=== PATIENT | male | born 1995 | race Caucasian/White ===

== ENCOUNTER 2022-05-10 13:57 | Outpatient (CLI) | payer OTHER, SELFPAY ==
[2022-05-10 23:01] LABS: PCR FLU A Negative PCR FLU A (Negative); PCR FLU B Negative PCR FLU B (Negative); SARS PCR* Negative SARS-CoV-2 (Negative)
== END 2022-05-10 13:58 | disposition home or self-care (01) ==
LOC: LONREF 13:57
PROVIDERS: PCP Family Medicine; Visit Provider Family Medicine
DX: Z20.822 Contact with and (suspected) exposure to COVID-19 (principal); R05.9 Cough, unspecified
CPT/HCPCS: 87631

== ENCOUNTER 2022-06-19 08:03 | Outpatient (CLI) | payer OTHER, SELFPAY ==
[2022-06-19 13:50] LABS: Cholesterol* 149 mg/dL (90-199)
[2022-06-19 13:51] LABS: HDL Cholesterol* 52 mg/dL (>=40); LDL Cholesterol Calculated 88 mg/dL (<100); Triglycerides* 46 mg/dL (40-149)
== END 2022-06-19 08:04 | disposition home or self-care (01) ==
LOC: LONREF 08:05
PROVIDERS: PCP Family Medicine; Visit Provider Family Medicine
DX: Z13.6 Encounter for screening for cardiovascular disorders (principal)
CPT/HCPCS: 80061

== ENCOUNTER 2023-10-05 08:14 | Outpatient (CLI) | payer OTHER, SELFPAY ==
--- OUTSIDE RECORDS SUMMARY | 2023-10-05 08:17 | XMS_ITS | Clinical Summary ---
Author Name Unknown Organization [facility] Address [place], [place] [address] Care Team Providers Care Production Hardener Name Role Phone Kranthi Myers DO Primary Care Provider [phone] Allergies Active Allergy Reactions Criticality Noted Date Comments Amoxicillin Hives 08/15/2006 Medications No known medications Active Problems Problem Noted Date Diagnosed Date Head injury 10/29/2014 Scalp laceration 10/29/2014 Resolved Problems Problem Noted Date Diagnosed Date Resolved Date Infectious mononucleosis 05/29/201110/2012 Immunizations Name Administration Dates Next Due DTP-HIB 1995,1995,1995 DTaP 12/28/2000,02/10/1997 HIB PRP-D (ProHIBIT) 02/10/1997 Hepatitis B (Peds) 07/22/2001,02/01/2001, 001 Inactivated Polio Vaccine 12/28/2000 MMR 02/01/2001,06/17/1996 Oral Polio Vaccine 02/10/1997,1995, 996,1995 Tdap 10/29/2014,03/04/2008 Varicella Vaccine 03/04/2008,02/01/2001 Family History Medical History Relation Name Comments Good Health Father Good Health Mother Relation Name Status Comments Father Alive Mother Alive Social History Tobacco Use Types Packs/Day Years Used Date Smoking Tobacco: Never Smokeless Tobacco: Current Chew Tobacco Cessation:Ready to Q uit: Yes; Counseling Given: Yes Alcohol Use Standard Drinks/Week Comments Yes 0 (1 standard drink = 0.6 oz pur e alcohol) occasional social use PHQ-2 Answer Date Recorded PHQ-2 Score 0 12/27/2018 Sex and Gender Information Value Date Recorded Sex Assigned at Not on file Gender Identity Not on file Sexual Orientation Not on file Obstetrics History Last Filed Vital Signs Vital Sign Reading Time Taken Comments Blood Pressure 100/58 12/27/2018 8:51 AM CDT Pulse 80 12/27/2018 8:51 AM CDT Temperature 36.2 ??C (97.1 ??F) 12/27/2018 8:51 AM CD T Respiratory Rate 17 12/24/2018 1:30 PM CDT Oxygen Saturation 98% 12/24/2018 1:30 PM CDT Inhaled Oxygen Concentration - - Weight 72.6 kg (160 lb) 12/27/2018 8:51 AM CDT Height 176 cm (5' 9.29) 12/27/2018 8:51 AM CDT Body Mass Index 23.43 12/27/2018 8:51 AM CDT Plan of Treatment Health Maintenance Due Date Last Done Comments HIV for age 15-65 2010 Hepatitis C screening for age 18-79 2013 BMI (ht and wt on same day) for age 18+ 12/28/2019 12/27/2018, 12/24/2018, 08/08/2018, Additional history exists Depression screening for age 12+ 12/28/2019 12/27/2018, 08/25/2016 COVID-19 vaccine series ( season) 2023 Influenza for age 9-49 02/03/2024 Tetanus booster 10/29/2024 10/29/2014, 03/04/2008 Tdap Completed 10/29/2014, 03/04/2008 Pneumococcal series for age 6-64 Aged Out No longer eligible based on patient's age to complete this topic Care Teams Production Hardener Relationship Specialty Start Date End Date Kranthi Myers DO PCP - General 11/06/05
--- NOTE | 2023-10-05 09:30 | CT_ITS ---
Patient: FLAKO Spangler [facility] Facility:?[facility] RIS Patient ID:?[id number] Site Patient ID:?[id number]. Site :?[id number] Study:?CT-ST Neck W/IV-10/05/2023 9:51:28 AM Ordering Physician:GERSON Final Report: INDICATION: SORE THRORT FOR 5 WEEKS, ACUTE PHARYGITIS TECHNIQUE: CT soft tissue of the neck was acquired with 85 cc Isovue 370 IV contrast. COMPARISON: None. FINDINGS: Artifact from dental amalgam limits evaluation of adjacent structures. Streak Skull base: Unremarkable. Pharynx/Larynx/Trachea: Epiglottis is normal. Airway is patent. No evidence of peritonsillar or retropharyngeal fluid collection. Adjacent soft tissues are normal. Salivary glands: Unremarkable. Thyroid gland: Unremarkable. No significant nodules. Lymph nodes: Mildly prominent right greater than left cervical chain lymph nodes which are nonspecific and likely reactive. Vessels: Unremarkable for age. Bones: Unremarkable for age. Misc: No inflammation, mass or fluid collection. Lung apices: Calcified granuloma right upper lobe. IMPRESSION: Mildly prominent right greater than left cervical chain lymph nodes which are nonspecific and likely reactive. Otherwise, unremarkable soft tissue CT of the neck. No evidence of peritonsillar or retropharyngeal fluid collection. Please note that all CT scans at this facility use dose modulation, iterative reconstruction, and/or weight-based dosing when appropriate to reduce radiation dose to as low as reasonably achievable. Dictated by Tano Marcelo MD @ 10/05/2023 10:19:43 AM Signed by:?Tano Marcelo MD @10/05/2023 10:19:43 AM (Electronic Signature)
== END 2023-10-05 08:15 | disposition home or self-care (01) ==
PROVIDERS: PCP Family Medicine; Visit Provider Family Medicine
DX: J02.9 Acute pharyngitis, unspecified (principal)
CPT/HCPCS: 70491; 80048; 86140; Q9967

== ENCOUNTER 2024-05-13 08:45 | Outpatient (CLI) | payer MEDICAID, SELFPAY ==
--- OUTSIDE RECORDS SUMMARY | 2024-05-13 08:46 | XMS_ITS | Clinical Summary ---
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 Not on file Not on file Not on file Obstetrics History Last Filed Vital Signs Vital Sign Reading Time Taken Comments Blood Pressure 100/58 12/27/2018 8:51 AM CDT Pulse 80 12/27/2018 8:51 AM CDT Temperature 36.2 C (97.1 F) 12/27/2018 8:51 AM CDT Respiratory Rate 17 12/24/2018 1:30 PM CDT [...] 12/27/2018, 08/25/2016 COVID-19 vaccine series ( season) 2024 Influenza for age 9-49 02/03/2024 Tetanus booster 10/29/2024 10/29/2014, 03/04/2008 Tdap Completed 10/29/2014, 03/04/2008 Pneumococcal series for age 6-64 Aged Out No longer eligible based on patient's age to complete this topic Insurance [facility] ADVANTAGE [employer] [place] [employer] [place] [employer] Care Teams Dicer Operator Relationship Specialty Start Date End Date Pcp, No . PCP - General 10/16/23
--- NOTE | 2024-05-13 09:29 | W.ANESCHARGE ---
Anesthesia Charges Start Date/Time Anesthesia Start Date: 05/13/24 Anesthesia Start Time: 09:07 Stop Date/Time Anesthesia Stop Date: 05/13/24 Anesthesia Stop Time: 09:25
--- NOTE | 2024-05-13 09:36 | W.ANESCHARGE ---
Anesthesia Charges Start Date/Time Anesthesia Start Date: 05/13/24 Anesthesia Start Time: 09:07 Stop Date/Time Anesthesia Stop Date: 05/13/24 Anesthesia Stop Time: 09:25
== END 2024-05-13 08:46 | disposition home or self-care (01) ==
LOC: OP CLINIC 08:45
PROVIDERS: PCP Family Medicine; Visit Provider Surgery
DX: R10.13 Epigastric pain (principal); K22.89 Other specified disease of esophagus
CPT/HCPCS: 00731; 43239; 88305; J2704; J3490

== ENCOUNTER 2025-03-31 20:00 | Emergency (ER) | payer MEDICAID, SELFPAY ==
--- OUTSIDE RECORDS SUMMARY | 2025-03-31 20:02 | XMS_ITS | Clinical Summary ---
Author Organization [facility] Address [address] [place] [id number] Care Team Providers Care Soft Mud Molder Name Role Phone Pcp, No Primary Care Provider Unavailabl e Allergies Active Allergy Reactions Criticality Noted Date Comments Amoxicillin Hives 08/15/2006 Medications No known medications Active Problems Problem Noted Date Diagnosed Date Head injury 10/29/2014 Scalp laceration 10/29/2014 Resolved Problems Problem Noted Date Diagnosed Date Resolved Date Infectious mononucleosis 05/29/201110/2012 Immunizations Immunization Administration Dates Next Due DTP-HIB 1995,1995,1995 DTaP [...] on file 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 Gender Identity Not on file Sexual Orientation [...] screening for age 12+ 12/28/2019 12/27/2018, 08/25/2016 HPV series for age 9-45 (1 - 3-dose SCDM series) 2022 Tetanus booster 10/29/2024 10/29/2014, 03/04/2008 Influenza Vaccine (#1) 2025 RSV vaccine for adults or (1 - 1-dose 75+ series) 2070 Hepatitis B series for 19+ Completed 07/22, 02/01/2001, 12/28/2000 Pneumococcal series for age 6-49 Aged Out No longer eligible based on patient's age to complete this topic Insurance [facility] ADVANTAGE [facility] ADVANTAGE [facility] AD[facility] * Guarantor: LAUREN DASH Account Type Relation to Patient Date of Phone Billing Address [employer] [address] [place] [address] Care Teams Soft Mud Molder Relationship Specialty Start Date End Date Pcp, No . PCP - General 10/16/23
[2025-03-31 20:13] VITALS: BP 162/112; PULSE 75; RESP 16; TEMP 36.2; O2SAT 99; BMI 26.6
--- NOTE | 2025-03-31 21:49 | CRLHL7_ITS ---
For Patients: As a result of the Century Cures Act, medical imaging exams and procedure reports are released immediately into your electronic medical record. You may view this report before your referring provider. If you have questions, please contact your health care provider. INDICATION: Abdominal pain. COMPARISON: CT of the abdomen and pelvis 02/19/2020. TECHNIQUE: Real time bella scale imaging and color Doppler analysis was performed of the right upper quadrant. FINDINGS: Liver: The liver measures 14.7 cm in length. Normal echogenicity. No focal liver lesions identified. Gallbladder: The gallbladder is contracted. No stones or sludge. Normal wall thickness. No pericholecystic fluid. Negative sonographic Lester sign. Bile ducts: The common bile duct measures 3 mm in diameter. Pancreas: Normal where seen. Right kidney: Suboptimally visualized. Measures 10.4 cm in length. No hydronephrosis, calculus, or mass. Vascular: Normal caliber abdominal aorta. The hepatic IVC appears patent. The main portal vein is patent with normal flow direction. IMPRESSION: Unremarkable exam. Dictated by Leandra Feliciano MD @ 04/01/2025 12:10:12 AM (Electronically Signed)
[2025-03-31 22:13] LABS: Lactate* 0.7 mmol/L (0.5-1.9)
[2025-03-31 22:17] LABS: Albumin* 4.5 g/dL (3.3-5.0)
[2025-03-31 22:18] LABS: Appearance Urine Clear (Clear)
[2025-03-31 22:18] LABS: Chloride* 105 mmol/L (96-114); Potassium* 3.7 mmol/L (3.6-5.1); Sodium* 140 mmol/L (135-149)
[2025-03-31] MEDS: ONDANSETRON 2 MG/ML inj 4 MG IVP (22:19)
[2025-03-31 22:20] LABS: Alanine Aminotransferase* 24 U/L (4-50); Alkaline Phosphatase* 82 U/L (40-150); Anion Gap 9 mEq/L (7-15); Aspartate Amino Transferase* 26 U/L (12-35); Bilirubin Direct* 0.3 mg/dL (0.0-0.5); Bilirubin Total* 1.0 mg/dL (0.1-1.5); Blood Urea Nitrogen* 15 mg/dL (5-24); Carbon Dioxide* 26 mmol/L (20-32); Creatinine* 1.2 mg/dL (0.5-1.5); Est. Creatinine Clearance* 90.01; Estimated Glomerular Filt Rate 83 ml/min; Total Protein* 7.1 g/dL (6.0-8.3)
[2025-03-31 22:21] LABS: Calcium* 9.4 mg/dL (8.4-10.6); Glucose* 113 mg/dL (60-115)
--- NOTE | 2025-03-31 22:22 | ED_ITS ---
HPI - General Adult General Date Seen: 03/31/25 <Anastacio Zaman MD - Last Filed: 04/03/25 01:36> Chief complaint: Abdominal Pain <Anastacio Zaman MD - Last Filed: 04/03/25 01:36> Stated complaint: abdomen/shoulder pain <Anastacio Zaman MD - Last Filed: 04/03/25 01:36> Time Seen by Provider: 03/31/25 21:27 <Anastacio Zaman MD - Last Filed: 04/03/25 01:36> History of Present Illness HPI narrative: 30-year-old male who is generally healthy with no long-term medical conditions, presenting to the ER this evening with his for evaluation of upper abdominal pain radiating from the epigastrium to the right upper quadrant and also sometimes to his right shoulder. They report that he had about a 6 week history of similar epigastric pain radiating up to his chest and neck last year. Sounds like they had a fairly extensive workup through their primary care provider, Dr. Greco. He was diagnosed empirically with GERD input on PPI but really never got better. He ultimately had an endoscopy that apparently was normal. It sounds like he was not able to identify any exacerbating or alleviating causes last year and unclear wide eventually went away. For about a week he has been experiencing a recurrence of pain in his epigastrium and often to his right upper quadrant and also into his right shoulder. The pain is not really radiating to his central chest or up to his throat/neck this time. He is not sure what brought it on. It has been pretty continuous all week long. It never really gets better. Nothing really makes it worse. He has had very poor appetite and limited desire to eat. He has been nauseous but not really vomiting. Says he has not had much food for the past 2 or 3 days. He notes decreased amount of urine and darker color of urine (yello w-brown) but no dysuria, urgency, frequency. He is not having any flank pain similar to his previous kidney stone. No fever. Bowel movements normal. No rash. No injury. 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 <Anastacio Zaman MD - Last Filed: 04/03/25 01:36> Related Data Home medications: Home Medications ?Medication ?Instructions ?Recorded ?Confirmed famotidine 20 mg tablet 20 mg PO DAILY 03/31/2503/05 Previous Rx's ?Medication ?Instructions ?Recorded omeprazole 40 mg capsule,delayed 40 mg PO DAILY #30 ca ps 04/01/25 release ondansetron HCl 4 mg tablet 4 mg PO Q8H PRN nausea and 04/01/25 vomiting #10 tabs <Anastacio Zaman MD - Last Filed: 04/03/25 01:36> Allergies/adverse reactions: Allergies Allergy/AdvReac Type Severity Reaction Status Date / Time Penicillins Allergy Unknown Verified 04/01/25 00:54 <Anastacio Zaman MD - Last Filed: 04/03/25 01:36> [facility] Surgical History: Surgical History H/O hand surgery ?Z98.890 - Other specified postprocedural states (ICD-10) <Anastacio Zaman MD - Last Filed: 04/03/25 01:36> Social History: Social History (Updated 04/25/24 @ 10:07 by Karoline Diez ~ RMA, RMA) Narrative: (Yesy), three kids, former smoker What is your current living situation?: I presently have a place to live In the past 12 months, utilities in danger of being shut off: no In past 12 months, lack of transportation kept you from medical appts, meetings, work, or getting things needed for daily living: no In the past 12 mos, have been you worried that your food would run out before you had money to buy more?: never true In the past 12 mos, the food you bought just didn't last and you didn't have money to buy more?: never true Smoking Status: Former smoker How often does anyone, including family, friends and others, physically hurt you : never How often does anyone, including family, friends and others, insult or talk down to you: never How often does anyone, including family, friends and others, threaten you with harm: never How often does anyone, including family, friends and others, scream or curse at you: never <Anastacio Zaman MD - Last Filed: 04/03/25 01:36> Exam Narrative: Exam Narrative: Constitutional: Appears well-developed and well-nourished. Alert. Conversant. He is stoic and declines offered pain meds. Non toxic. HENT: Head: Atraumatic. Nose: Nose normal. Mouth/Throat: Oral mucosa is clear and moist. no trismus. Pharynx normal. Tonsils symmetric. No tonsillar enlargement, erythema, or exudate. Eyes: Conjunctivae normal. EOM normal. Pupils equal, round, and reactive to light. No scleral icterus. Neck: Normal range of motion. Neck supple. No tracheal deviation present. Cardiovascular: Normal rate, regular rhythm. No gallop. No friction rub. No mu rmur heard. Symmetric radial artery pulses Pulmonary/Chest: Effort normal. No stridor. No respiratory distress. No wheezes. No rales. No rhonchi . No tenderness. Abdominal: Soft. Bowel sounds normal. No distension. No mass. Epigastric> right upper quadrant> left upper quad tenderness. No rebound. No guarding. No CVA tenderness. No lower abdominal tenderness. Musculoskeletal: RUE: Normal range of motion. No tenderness. No deformity LUE: Normal range of motion. No tenderness. No deformity RLE: Normal range of motion. No edema. No tenderness. No deformity LLE: Normal range of motion. No edema. No tenderness. No deformity Neurological: Alert and oriented to person, place, and time. Normal strength. CN II-VII intact. No sensory deficit. GCS eye subscore is 4. GCS verbal subscore is 5. GCS motor subscore is 6. Normal coordination Skin: Skin is warm and dry. No rash noted. No pallor. Normal capillary refill. Psychiatric: Normal mood. Normal affect. <Anatsacio Zaman MD - Last Filed: 04/03/25 01:36> Const: Vital Signs, click to edit/add: Vital Signs - 24 hr 03/31/25 20:13 03/31/25 23:35 03/31/25 23:36 Temperature 97.1 F L Pulse Rate 68 62 Pulse Rate [Pulse Oximeter] 75 Respiratory Rate 16 Blood Pressure 124/79 Blood Pressure [Ri ght Upper Arm] 162/112 H Pulse Oximetry 99 99 99 Oxygen Delivery Me thod Room Air 04/01/25 01:23 Temperature Pulse Rate Pulse Rate [Pulse Oximeter] 87 Respiratory Rate 16 Blood Pressure Blood Pressure [Ri ght Upper Arm] 119/79 Pulse Oximetry 96 Oxygen Delivery Me thod Room Air <Anastacio Zaman MD - Last Filed: 04/03/25 01:36> Vital Signs, click to edit/add: Vital Signs - 24 hr 03/31/25 20:13 03/31/25 23:35 03/31/25 23:36 Temperature 97.1 F L Pulse Rate 68 62 Pulse Rate [Pulse Oximeter] 75 Respiratory Rate 16 Blood Pressure 124/79 Blood Pressure [Ri ght Upper Arm] 162/112 H Pulse Oximetry 99 99 99 Oxygen Delivery Me thod Room Air 04/01/25 01:23 Temperature Pulse Rate Pulse Rate [Pulse Oximeter] 87 Respiratory Rate 16 Blood Pressure Blood Pressure [Ri ght Upper Arm] 119/79 Pulse Oximetry 96 Oxygen Delivery Me thod Room Air <Liliam Rivas MD - Last Filed: 04/01/25 01:33> Course Course ED Course: Recheck-patient declines pain meds. Will agree to IV, labs, workup. <Anastacio Zaman MD - Last Filed: 04/03/25 01:36> Reevaluation(s) Reevaluation #1: Recheck-right upper quadrant ultrasound is normal. Discussed in detail with the patient and his . They are little bit disappointed that was normal because they were expecting/hoping it might be gallstones causing his pain. He still declines pain meds but endorses ongoing pain. Will obtain CT scan. <Anastacio Zaman MD - Last Filed: 04/03/25 01:36> Reevaluation #2: Discussed with my partner, Dr. Rivas at 1:00 a.m.. She will follow-up on the results of the CT scan. If normal the patient discharge home. Would start him on empiric course of proton pump inhibitor and recommend close outpatient follow-up PCP and GI referral for endoscopy and/or consideration of HIDA scan. <Anastacio Zaman MD - Last Filed: 04/03/25 01:36> Time of Reevaluation #3: 01:31 <Liliam Rivas MD - Last Filed: 04/01/25 01:33> Reevaluation #3: Dr. Rivas: Update: Reviewed CT findings with patient. Like Dr. Zaman, I suspect that this could be related to GERD but more likely is biliary dyskinesia. Counseled patient on starting [id number] omeprazole, prescription sent unless he prefers to fill it this way. Small amount of Zofran as needed as well. Okay to use Tylenol as needed for pain. Would like for him to see his primary care doctor and have arrangements made for a HIDA scan after harvest season. Alarm symptoms reviewed that would warrant ED re-evaluation in the interim. Written instructions provided. All questions answered. <Liliam Rivas MD - Last Filed: 04/01/25 01:33> Vital Signs Vital signs: Initial Vital Signs Temperature 97.1 F L 03/31/25 20:13 Temperature Source Temporal Artery Scan 03/31/25 20:13 Pulse Rate 75 03/31/25 20:13 Respiratory Rate 16 03/31/25 20:13 Blood Pressure 162/112 H 03/31/25 20:13 Blood Pressure Mean 128 H 03/31/25 20:13 Blood Pressure Position Supine 03/31/25 20:13 Pulse Oximetry 99 03/31/25 20:13 Oxygen Delivery Method Room Air 03/31/25 20:13 Vital Signs Temperature 97.1 F L 03/31/25 20:13 Pulse Rate 75 03/31/25 20:13 Respiratory Rate 16 03/31/25 20:13 Blood Pressure 162/112 H 03/31/25 20:13 Pulse Oximetry 99 03/31/25 20:13 Oxygen Delivery Method Room Air 03/31/25 20:13 Temperature 97.1 F L 03/31/25 20:13 Pulse Rate 87 04/01/25 01:23 Respiratory Rate 16 04/01/25 01:23 Blood Pressure 119/79 04/01/25 01:23 Pulse Oximetry 96 04/01/25 01:23 Oxygen Delivery Method Room Air 04/01/25 01:23 <Anastacio Zaman MD - Last Filed: 04/03/25 01:36> Initial Vital Signs Temperature 97.1 F L 03/31/25 20:13 Temperature Source Temporal Artery Scan 03/31/25 20:13 Pulse Rate 75 03/31/25 20:13 Respiratory Rate 16 03/31/25 20:13 Blood Pressure 162/112 H 03/31/25 20:13 Blood Pressure Mean 128 H 03/31/25 20:13 Blood Pressure Position Supine 03/31/25 20:13 Pulse Oximetry 99 03/31/25 20:13 Oxygen Delivery Method Room Air 03/31/25 20:13 Vital Signs Temperature 97.1 F L 03/31/25 20:13 Pulse Rate 75 03/31/25 20:13 Respiratory Rate 16 03/31/25 20:13 Blood Pressure 162/112 H 03/31/25 20:13 Pulse Oximetry 99 03/31/25 20:13 Oxygen Delivery Method Room Air 03/31/25 20:13 Temperature 97.1 F L 03/31/25 20:13 Pulse Rate 87 04/01/25 01:23 Respiratory Rate 16 04/01/25 01:23 Blood Pressure 119/79 04/01/25 01:23 Pulse Oximetry 96 04/01/25 01:23 Oxygen Delivery Method Room Air 04/01/25 01:23 <Liliam Rivas MD - Last Filed: 04/01/25 01:33> Medications Administered Medications: Discontinued Medications Generic Name Dose Route Start Last Admin Trade Name Freq PRN Reason Stop Dose Admin Sodium Chloride 1,000 mls @ 1,000 mls/hr 03/31/25 22:00 03/31/25 23:59 0.9 % Sodium Chloride 1000 Ml IV 03/31/25 22:59 Infused .Q1H ROZINA Infusion Ondansetron HCl 4 mg 03/31/25 21:49 03/31/25 22:19 Ondansetron 2 Mg/Ml Inj IVP 03/31/25 21:50 4 mg ONCE ONE Administration <Anastacio Zaman MD - Last Filed: 04/03/25 01:36> Discontinued Medications Generic Name Dose Route Start Last Admin Trade Name Freq PRN Reason Stop Dose Admin Sodium Chloride 1,000 mls @ 1,000 mls/hr 03/31/25 22:00 03/31/25 23:59 0.9 % Sodium Chloride 1000 Ml IV 03/31/25 22:59 Infused .Q1H ROZINA Infusion Ondansetron HCl 4 mg 03/31/25 21:49 03/31/25 22:19 Ondansetron 2 Mg/Ml Inj IVP 03/31/25 21:50 4 mg ONCE ONE Administration <Liliam Rivas MD - Last Filed: 04/01/25 01:33> Medical Decision Making MDM Narrative Medical decision making narrative: Presented to the Emergency Department with epigastric/right upper quadrant abdominal pain present for about a week. He had a similar episode of pain that lasted about 6 weeks last year. A previous episode of ventrally resolved on its own and no clear cause was ever found.. The differential diagnosis of abdominal pain includes: Gallstones, biliary colic, cholecystitis, choledocholithiasis, hepatitis, gastritis, peptic ulcer disease, duodenal ulcer, atypical presentation of Appendicitis, Bowel Obstruction, Ulcer, . Laboratory testing does not reveal a cause for the patient's pain. Right upper quadrant is normal. I have ordered CT scan for further evaluation of other causes of abdominal pain. Patient signed out to Dr. Rivas <Anastacio Zaman MD - Last Filed: 04/03/25 01:36> Lab Data Lab results reviewed: Yes I reviewed the patient's lab results <Liliam Rivas MD - Last Robbie ed: 04/01/25 01:33> Lab results narrative: Labs reassuring. No significant leukocytosis, electrolyte abnormality, renal abnormality, signs of inflammation or other worrisome findings. <Liliam Rivas MD - Last Filed: 04/01/25 01:33> Labs: Lab Results 03/31/25 03/31/25 Range/Units 21:30 22:10 WBC 7.73 (4.50-11.00) K/uL RBC 5.37 (4.30-5.90) m/uL Hgb 15.7 (13.5-17.5) gm/dL Hct 45.7 (37.0-53.0) % MCV 85 (80-100) fL MCH 29 (26-34) pg MCHC 34 (32-36) gm/dL RDW Coeff of Jalil 12.1 (11.5-15.5) % Plt Count 264 (140-440) K/uL Neut % (Auto) 54.1 (42.0-72.0) % Lymph % (Auto) 31.4 (20-44) % [place] % (Auto) 11.0 (0.0-11.0) % Eos % (Auto) 2.5 (0.0-7.0) % Baso % (Auto) 0.9 (0.0-3.0) % Neut # (Auto) 4.18 (1.7-7.0) K/uL Lymph # (Auto) 2.43 (0.90-2.90) K/uL [place] # (Auto) 0.90 (0.00-0.90) K/UL Eos # (Auto) 0.19 (0.00-0.50) K/uL Baso # (Auto) 0.07 (0.00-0.30) K/uL Abs Immat Gran (auto) 0.01 (0.00-0.30) K/uL Imm/Tot Granulo (auto) 0.1 % Sodium 140 (135-149) mmol/L Potassium 3.7 (3.6-5.1) mmol/L Chloride 105 (96-114) mmol/L Carbon Dioxide 26 (20-32) mmol/L Anion Gap 9 (7-15) mEq/L BUN 15 (5-24) mg/dL Creatinine 1.2 (0.5-1.5) mg/dL Estimated Creat Clear 90.01 Estimated GFR 83 ml/min Glucose 113 (60-115) mg/dL Lactate 0.7 (0.5-1.9) mmol/L Calcium 9.4 (8.4-10.6) mg/dL Total Bilirubin 1.0 (0.1-1.5) mg/dL Direct Bilirubin 0.3 (0.0-0.5) mg/dL AST 26 (12-35) U/L ALT 24 (4-50) U/L Alkaline Phosphatase 82 (40-150) U/L Total Protein 7.1 (6.0-8.3) g/dL Albumin 4.5 (3.3-5.0) g/dL Lipase 145 (23-300) U/L Urine Color Yellow (Yellow) Urine Appearance Clear (Clear) Urine pH 6.5 (5.0-8.5) Ur Specific [place] 1.025 (1.000-1.030) Urine Protein Negative (Negative) Urine Glucose (UA) Negative (Negative) Urine Ketones 1+ A (Negative) Urine Blood Trace-intact A (Negative) Urine Nitrite Negative (Negative) Urine Bilirubin Negative (Negative) Urine Urobilinogen 1.0 (0.2-1.0) Ur Leukocyte Esterase Negative (Negative) Urine RBC 0-2 (0-2) Urine WBC 0-2 (0-5) Ur Squamous Epith Cells Few (None-Few) Amorphous Sediment Few A (None) Urine Bacteria Few A (None) Urine Mucus Moderate A (None) <Anastacio Zaman MD - Last Filed: 04/03/25 01:36> Lab Results 03/31/25 03/31/25 Range/Units 21:30 22:10 WBC 7.73 (4.50-11.00) K/uL RBC 5.37 (4.30-5.90) m/uL Hgb 15.7 (13.5-17.5) gm/dL Hct 45.7 (37.0-53.0) % MCV 85 (80-100) fL MCH 29 (26-34) pg MCHC 34 (32-36) gm/dL RDW Coeff of Jalil 12.1 (11.5-15.5) % Plt Count 264 (140-440) K/uL Neut % (Auto) 54.1 (42.0-72.0) % Lymph % (Auto) 31.4 (20-44) % [place] % (Auto) 11.0 (0.0-11.0) % Eos % (Auto) 2.5 (0.0-7.0) % Baso % (Auto) 0.9 (0.0-3.0) % Neut # (Auto) 4.18 (1.7-7.0) K/uL Lymph # (Auto) 2.43 (0.90-2.90) K/uL [place] # (Auto) 0.90 (0.00-0.90) K/UL Eos # (Auto) 0.19 (0.00-0.50) K/uL Baso # (Auto) 0.07 (0.00-0.30) K/uL Abs Immat Gran (auto) 0.01 (0.00-0.30) K/uL Imm/Tot Granulo (auto) 0.1 % Sodium 140 (135-149) mmol/L Potassium 3.7 (3.6-5.1) mmol/L Chloride 105 (96-114) mmol/L Carbon Dioxide 26 (20-32) mmol/L Anion Gap 9 (7-15) mEq/L BUN 15 (5-24) mg/dL Creatinine 1.2 (0.5-1.5) mg/dL Estimated Creat Clear 90.01 Estimated GFR 83 ml/min Glucose 113 (60-115) mg/dL Lactate 0.7 (0.5-1.9) mmol/L Calcium 9.4 (8.4-10.6) mg/dL Total Bilirubin 1.0 (0.1-1.5) mg/dL Direct Bilirubin 0.3 (0.0-0.5) mg/dL AST 26 (12-35) U/L ALT 24 (4-50) U/L Alkaline Phosphatase 82 (40-150) U/L Total Protein 7.1 (6.0-8.3) g/dL Albumin 4.5 (3.3-5.0) g/dL Lipase 145 (23-300) U/L Urine Color Yellow (Yellow) Urine Appearance Clear (Clear) Urine pH 6.5 (5.0-8.5) Ur Specific [place] 1.025 (1.000-1.030) Urine Protein Negative (Negative) Urine Glucose (UA) Negative (Negative) Urine Ketones 1+ A (Negative) Urine Blood Trace-intact A (Negative) Urine Nitrite Negative (Negative) Urine Bilirubin Negative (Negative) Urine Urobilinogen 1.0 (0.2-1.0) Ur Leukocyte Esterase Negative (Negative) Urine RBC 0-2 (0-2) Urine WBC 0-2 (0-5) Ur Squamous Epith Cells Few (None-Few) Amorphous Sediment Few A (None) Urine Bacteria Few A (None) Urine Mucus Moderate A (None) <Liliam Rivas MD - Last Filed: 04/01/25 01:33> Imaging Data RUQ US: Attestation: I have reviewed the pertinent imaging results. <Anastacio Zaman MD - Last Filed: 04/03/25 01:36> Radiologist's impression: IMPRESSION: Unremarkable exam. <Anastacio Zaman MD - Last Filed: 04/03/25 01:36> CT scan - abdomen: Attestation: I have reviewed the pertinent imaging results. <Liliam Rivas MD - Last Filed: 04/01/25 01:33> My impression: Gallbladder looks contracted but no obvious signs of gallstones or infection. Appendix looks normal no other pathology. <Liliam Rivas MD - Last Filed: 04/01/25 01:33> Radiologist's impression: IMPRESSION: 1. No acute findings within the abdomen and pelvis. 2. 2 mm nonobstructing left nephrolith. Please note that all CT scans at this facility use dose modulation, iterative reconstruction, and/or weight-based dosing when appropriate to reduce radiation dose to as low as reasonably achievable. Dictated by Anastacio Hancock MD @ 04/01/2025 1:14:21 AM <Liliam Rivas MD - Last Filed: 04/01/25 01:33> Discharge Plan Discharge Clinical Impression: Abdominal pain <Anastacio Zaman MD - Last Filed: 04/03/25 01:36> Patient Disposition: Home, Self-Care <Anastacio Zaman MD - Last Filed: 04/03/25 01:36> Condition: Stable <Anastacio Zaman MD - Last Filed: 04/03/25 01:36> Instructions: Abdominal Pain (ED) <Anastacio Zaman MD - Last Filed: 04/03/25 01:36> Additional Instructions: As we discussed, at this point your workup here in the ER does not reveal a cause for your pain. This is good news because at this point we do not see any acute life-threatening emergency. However and no a can be frustrating when the results do not given explanation for your symptoms. Please follow-up with your regular doctor soon as possible (within 1-3 days) for re-evaluation. You likely will need evaluation by GI with another endoscopy or possibly at HIDA scan of your gallbladder. I do want you to restart the stomach acid medicine to see if this has any effect on her symptoms. Prescription has been sent to your pharmacy or you may purchase [id number]. You have also been provided with some anti nausea pills just in case this is helpful for you as well. In the meantime, please remember you should come back to the ER right away if you have worsening pain, uncontrolled vomiting, high fever, jaundice, or other changing or concerning symptoms. <Anastacio Zaman MD - Last Filed: 04/03/25 01:36> Activity Level: No Restrictions <Anastacio Zaman MD - Last Filed: 04/03/25 01:36> No Restrictions <Liliam Rivas MD - Last Filed: 04/01/25 01:33> Prescriptions: New ondansetron HCl 4 mg tablet 4 mg PO Q8H PRN (Reason: nausea and vomiting) Qty: 10 0RF omeprazole 40 mg capsule,delayed release(DR/EC) 40 mg PO DAILY Qty: 30 2RF No Action famotidine 20 mg tablet 20 mg PO DAILY <Anastacio Zaman MD - Last Filed: 04/03/25 01:36> Follow Up/Referrals: Braydon Greco MD [Primary Care Provider, Family Practice] <Anastacio Zaman MD - Last Filed: 04/03/25 01:36> Stand Alone Forms: MyHealth Info Instructions <Anastacio Zaman MD - Last Filed: 04/03/25 01:36>
[2025-03-31 22:26] LABS: Hematocrit* 45.7 % (37.0-53.0); Hemoglobin* 15.7 gm/dL (13.5-17.5); Immature Granulocytes Abs Auto 0.01 K/uL (0.00-0.30); Immature Granulocytes Pct Auto 0.1 %; Lymphocytes Absolute Auto 2.43 K/uL (0.90-2.90); Mean Corpuscular HGB Conc 34 gm/dL (32-36); Mean Corpuscular Hemoglobin 29 pg (26-34); Mean Corpuscular Volume 85 fL (80-100); RDW Coefficient of Variation % 12.1 % (11.5-15.5); Red Blood Count* 5.37 m/uL (4.30-5.90); White Blood Count* 7.73 K/uL (4.50-11.00)
[2025-03-31 22:28] LABS: Slide Review Reflex No
[2025-03-31 23:35] VITALS: BP 124/79; PULSE 68; O2SAT 99
[2025-03-31 23:36] VITALS: PULSE 62; O2SAT 99
--- NOTE | 2025-04-01 00:27 | CRLHL7_ITS ---
For Patients: As a result of the Century Cures Act, medical imaging exams and procedure reports are released immediately into your electronic medical record. You may view this report before your referring provider. If you have questions, please contact your health care provider. INDICATION: Upper abdominal pain, nausea. TECHNIQUE: CT abdomen and pelvis acquired with 89 cc of Isovue 370 IV contrast. COMPARISON: CT abdomen and pelvis 02/19/2020. FINDINGS: Lower chest: Small right lower lobe calcified granuloma. Liver: Unremarkable. Normal in size and attenuation. No suspicious masses. Gallbladder and bile ducts: Unremarkable. No stones or inflammation. No biliary dilatation. Pancreas: Unremarkable. No mass or inflammation. Spleen: Unremarkable. Normal in size. No masses. Adrenal glands: Unremarkable. No nodules. Kidneys: 2 mm nonobstructing left nephrolith. No hydronephrosis. Unremarkable right kidney. GI tract: Unremarkable. Normal in caliber. No sign of mass or inflammation. Normal appendix. Vasculature: Abdominal aorta is normal in caliber. Mesenteric arteries are patent. Lymph nodes: No lymphadenopathy. Peritoneum/Abdominal Wall: Unremarkable. No free air or significant free fluid. Pelvis: Unremarkable. Bones: Unremarkable for age. IMPRESSION: 1. No acute findings within the abdomen and pelvis. 2. 2 mm nonobstructing left nephrolith. Please note that all CT scans at this facility use dose modulation, iterative reconstruction, and/or weight-based dosing when appropriate to reduce radiation dose to as low as reasonably achievable. Dictated by Anastacio Hancock MD @ 04/01/2025 1:14:21 AM (Electronically Signed)
[2025-04-01 01:23] VITALS: BP 119/79; PULSE 87; RESP 16; O2SAT 96
== END 2025-04-01 01:32 | disposition home or self-care (01) ==
PROVIDERS: Emergency Medicine; Emergency Provider Family Medicine; PCP Family Medicine
DX: R10.11 Right upper quadrant pain (principal)
CPT/HCPCS: 36415; 74177; 76705; 80048; 80076; 81001; 83605; 83690; 85025; 87086; 96361; 96374; 99283; 99284; 99285; J2405; J7030; Q9967

== ENCOUNTER 2025-04-05 21:01 | Emergency (ER) | payer MEDICAID, SELFPAY ==
--- OUTSIDE RECORDS SUMMARY | 2025-04-05 21:03 | XMS_ITS | Clinical Summary ---
Author Organization [facility] Address [address] [place] [id number] Care Team Providers Care [employer] Stewardess Name Role Phone Pcp, No Primary Care [...] on file Legal Sex Male 5:19 AM SALES E[employer] Gender Identity Not on file Sexual Orientation [...] patient's age to complete this topic Insurance [facility] ADVANTAGE [facility] ADVANTAGE [facility] ADVANTAGE Care Teams [employer] Stewardess Relationship Specialty Start Date End Date Pcp, No . PCP - General 10/16/23
[2025-04-05 21:08] VITALS: BP 154/101; PULSE 82; RESP 15; TEMP 36.5; O2SAT 99; BMI 27.6
--- NOTE | 2025-04-05 21:22 | ED.GENADULT ---
HPI - General Adult General Chief complaint: Chest Pain Stated complaint: chest pain Time Seen by Provider: 04/05/25 21:22 History of Present Illness HPI narrative: pain in right chest that radiates to right neck and back, nausea, dizziness, shortness of breath, had been seen for some gallbladder issues recently but feels this is different, states, it feels like my heart is pumping paint 30-year-old man presenting to the emergency department With bacteriuria however [place] epigastric area pain going on for 3 weeks or so. After being evaluated recently, 3 days ago I think in this emergency department, with concerns of potential gallbladder disease. Feels like now that now that has passed and now he is realizing this midsternal ? center? location of discomfort. Day and half after his visit here after about 3 weeks of epigastric area pain, this has settled and now he feels like his chest pain has now been unmasked. He describes it initially as constant but it is not actually constant or at least that there are flares of pain periodically through the day. He will feel sweaty nauseated feel like his heart is just pounding and this is lasting approximately 15 minutes. Spontaneously resolves. Otherwise is feeling like there is a needle poking in the middle of his chest. Not really pleuritic. He was feeling worse discomfort when lying down on the floor on his right side. This is when he was trying to calm down. 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 Mostly brought on by going, driving into place is. Does not think that this is what is experiencing. Related Data Previous Rx's ?Medication ?Instructions ?Recorded omeprazole 40 mg capsule,delayed 40 mg PO DAILY #30 caps 04/01/25 release ondansetron HCl 4 mg tablet 4 mg PO Q8H PRN nausea and 04/01/25 vomiting #10 tabs propranolol 20 mg tablet 20 mg PO TID PRN #21 tabs 04/05/25 escitalopram oxalate 10 mg tablet 10 mg PO QDAY #30 tabs 04/09/25 (Lexapro) lorazepam 1 mg tablet 0.5 - 1 mg (0.5 - 1 x 1 mg) PO BID 04/09/25 PRN anxiety #20 tabs Allergies Allergy/AdvReac Type Severity Reaction Status Date / Time Penicillins Allergy Unknown Verified 04/09/25 11:12 Review of Systems Status of ROS: Reports: 6 or more systems reviewed and unremarkable except as noted in History and below PFSH PFS Surgical History H/O hand surgery ?Z98.890 - Other specified postprocedural states (ICD-10) Social History Narrative: (Yesy), three kids, former smoker What is your current living situation?: I presently have a place to live In the past 12 months, utilities in danger of being shut off: no In past 12 months, lack of transportation kept you from medical appts, meetings, work, or getting things needed for daily living: no In the past 12 mos, have been you worried that your food would run out before you had money to buy more?: never true In the past 12 mos, the food you bought just didn't last and you didn't have money to buy more?: never true Smoking Status: Former smoker How often does anyone, including family, friends and others, physically hurt you: never How often does anyone, including family, friends and others, insult or talk down to you: never How often does anyone, including family, friends and others, threaten you with harm: never How often does anyone, including family, friends and others, scream or curse at you: never Exam Narrative: Exam Narrative: Accompanied here by appropriately attentive significant other. Relatively calm. Speaking fluidly, easily. Breathing easily. Lungs are clear. Heart in regular rate and rhythm. Extremities are well perfused without edema. No supraclavicular crepitus. Abdomen is flat and soft. He has some tenderness to palpation in the epigastrium. Const: Vital Signs, click to edit/add: Vital Signs - 24 hr 04/05/25 21:08 04/05/25 22:32 04/05/25 22:33 Temperature 97.7 F Pulse Rate Pulse Rate [Right Radial] 82 Respiratory Rate 15 12 10 L Blood Pressure [Ri ght Upper Arm] 154/101 H Pulse Oximetry 99 99 99 04/05/25 22:45 Temperature Pulse Rate 66 Pulse Rate [Right Radial] Respiratory Rate 17 Blood Pressure [Ri ght Upper Arm] Pulse Oximetry 98 Documenting provider has reviewed patient's vital signs: yes Course Vital Signs Vital signs: Initial Vital Signs Temperature 97.7 F 04/05/25 21:08 Temperature Source Temporal Artery Scan 04/05/25 21:08 Pulse Rate 82 04/05/25 21:08 Respiratory Rate 15 04/05/25 21:08 Blood Pressure 154/101 H 04/05/25 21:08 Blood Pressure Mean 118 H 04/05/25 21:08 Blood Pressure Position Sitting 04/05/25 21:08 Pulse Oximetry 99 04/05/25 21:08 Vital Signs Temperature 97.7 F 04/05/25 21:08 Pulse Rate 82 04/05/25 21:08 Respiratory Rate 15 04/05/25 21:08 Blood Pressure 154/101 H 04/05/25 21:08 Pulse Oximetry 99 04/05/25 21:08 Temperature 97.7 F 04/05/25 21:08 Pulse Rate 66 04/05/25 22:45 Respiratory Rate 17 04/05/25 22:45 Blood Pressure 154/101 H 04/05/25 21:08 Pulse Oximetry 98 04/05/25 22:45 Medications Administered Medications: Discontinued Medications Generic Name Dose Route Start Last Admin Trade Name Freq PRN Reason Stop Dose Admin Lidocaine/Aluminum/Magnesium/Simeth 30 ml 04/05/25 21:29 04/05/25 21:54 Gi Cocktail (Visc Lido/Antacid) 30 Ml PO 04/05/25 21:30 30 ml ONCE ONE Administration Lorazepam 1 mg 04/05/25 23:44 04/06/25 00:05 Lorazepam 1 Mg Tablet PO 04/05/25 23:45 1 mg ONCE ONE Administration Medical Decision Making [facility] Narrative Medical decision making narrative: Can certainly do a cardiac assessment here. Sounds like might be experiencing some arrhythmia or dysrhythmia. Positional changes worsening might indicate some pericarditis. Will check EKG in appropriate labs. Chest x-ray looking for evidence of a cardiomyopathy. Screen for pulmonary embolus. I think anxiety might be contributing. Did trial GI cocktail. Unclear if this helped. Does have some GERD history. One-view chest x-ray independently reviewed by me looks unremarkable. No evidence of cardiomyopathy. No pneumothorax. Monitored on satellite project site monitor without event in the emergency department. Discussed suspicion of anxiety related to these episodes but also offered cardiac monitoring longer-term for further assessment. Primary symptoms seems to be episodes of pounding heart. Perhaps propranolol would be particularly helpful here. Placed a ZIO patch. After discussion of options, Lorazepam dispensed in the emergency department that he may take yet tonight. See patient discharge plan for further discussion As I said, the intermittent symptoms that you were describing seem likely to be either an arrhythmia or attacks of anxiety. We placed a ZIO patch. Scheduled for 2 weeks but if you have a number of these episodes within the 1st week that would probably be enough and you could return it sooner. I would follow-up then in clinic around 5 days later to discuss results. Otherwise for addressing likely anxiety, it sounds as though you have an appointment with your primary care provider. Try to get quality and regular sleep. Try to get in a little heart pumping exercise daily. I have also prescribed, as discussed, some propranolol that you can take to control/settle these episodes. Lab Data Lab results reviewed: Yes I reviewed the patient's lab results Labs: Lab Results 04/05/25 04/05/25 04/05/25 Range/Units 21:25 22:10 22:32 WBC 8.46 (4.50-11.00) K/uL RBC 5.69 (4.30-5.90) m/uL Hgb 16.7 (13.5-17.5) gm/dL Hct 48.4 (37.0-53.0) % MCV 85 (80-100) fL MCH 29 (26-34) pg MCHC 35 (32-36) gm/dL RDW Coeff of Jalil 12.2 (11.5-15.5) % Plt Count 261 (140-440) K/uL Neut % (Auto) 64.2 (42.0-72.0) % Lymph % (Auto) 24.8 (20-44) % [place] % (Auto) 8.2 (0.0-11.0) % Eos % (Auto) 1.8 (0.0-7.0) % Baso % (Auto) 0.5 (0.0-3.0) % Neut # (Auto) 5.44 (1.7-7.0) K/uL Lymph # (Auto) 2.10 (0.90-2.90) K/uL [place] # (Auto) 0.70 (0.00-0.90) K/UL Eos # (Auto) 0.15 (0.00-0.50) K/uL Baso # (Auto) 0.04 (0.00-0.30) K/uL Abs Immat Gran (auto) 0.04 (0.00-0.30) K/uL Imm/Tot Granulo (auto) 0.5 % D-Dimer Quant (PE/DVT) < 0.27 (0.00-0.50) ug/ml Sodium 138 (135-149) mmol/L Potassium 3.7 (3.6-5.1) mmol/L Chloride 105 (96-114) mmol/L Carbon Dioxide 23 (20-32) mmol/L Anion Gap 10 (7-15) mEq/L BUN 16 (5-24) mg/dL Creatinine 1.0 (0.5-1.5) mg/dL Estimated Creat Clear 108.01 Estimated GFR 104 ml/min Glucose 101 (60-115) mg/dL Calcium 9.2 (8.4-10.6) mg/dL Total Bilirubin 1.5 (0.1-1.5) mg/dL Direct Bilirubin 0.4 (0.0-0.5) mg/dL AST 25 (12-35) U/L ALT 22 (4-50) U/L Alkaline Phosphatase 75 (40-150) U/L Troponin I < 0.01 (0.01-0.04) ng/mL C-Reactive Protein < 0.5 L (0.5-1.0) mg/dL NT-Pro-B Natriuret Pep < 20 (See Note) pg/mL Total Protein 7.8 (6.0-8.3) g/dL Albumin 4.9 (3.3-5.0) g/dL TSH 1.590 (0.270-4.20) uIU/mL Lab Acknowledgement Test Added POC Troponin I 0.00 L (0.01-0.04) ng/ml ECG Data Attestation: I personally reviewed and interpreted this ECG as follows: (Normal sinus rhythm. Rate of 75) Discharge Plan Discharge Clinical Impression: Pounding heartbeat, Epigastric abdominal pain, Atypical chest pain Patient Disposition: Home w/ Parent or Adult Condition: Improved Additional Instructions: As I said, the intermittent symptoms that you were describing seem likely to be either an arrhythmia or attacks of anxiety. We placed a ZIO patch. Scheduled for 2 weeks but if you have a number of these episodes within the 1st week that would probably be enough and you could return it sooner. I would follow-up then in clinic around 5 days later to discuss results. Otherwise for addressing likely anxiety, it sounds as though you have an appointment with your primary care provider. Try to get quality and regular sleep. Try to get in a little heart pumping exercise daily. I have also prescribed, as discussed, some propranolol that you can take to control/settle these episodes. Activity Level: No Restrictions Discharge Diet: Regular Prescriptions: New propranolol 20 mg tablet 20 mg PO TID PRNQty: 21 0RF No Action lorazepam 1 mg tablet 0.5 - 1 mg PO BID PRN (Reason: anxiety) Qty: 20 0RF escitalopram oxalate [Lexapro] 10 mg tablet 10 mg PO QDAY Qty: 30 1RF Rx Instructions: 1/2 QD x 6 days then 1 QD ondansetron HCl 4 mg tablet 4 mg PO Q8H PRN (Reason: nausea and vomiting) Qty: 10 0RF omeprazole 40 mg capsule,delayed release(DR/EC) 40 mg PO DAILY Qty: 30 2RF Follow Up/Referrals: Braydon Greco MD [Primary Care Provider, Family Practice] Stand Alone Forms: [facility] Info Instructions
[2025-04-05 21:35] LABS: Troponin, Point-of-Care* 0.00 ng/ml (0.01-0.04)
[2025-04-05 21:41] LABS: Hematocrit* 48.4 % (37.0-53.0); Hemoglobin* 16.7 gm/dL (13.5-17.5); Immature Granulocytes Abs Auto 0.04 K/uL (0.00-0.30); Immature Granulocytes Pct Auto 0.5 %; Lymphocytes Absolute Auto 2.10 K/uL (0.90-2.90); Mean Corpuscular HGB Conc 35 gm/dL (32-36); Mean Corpuscular Hemoglobin 29 pg (26-34); Mean Corpuscular Volume 85 fL (80-100); RDW Coefficient of Variation % 12.2 % (11.5-15.5); Red Blood Count* 5.69 m/uL (4.30-5.90); White Blood Count* 8.46 K/uL (4.50-11.00)
[2025-04-05 21:43] LABS: Slide Review Reflex No
[2025-04-05] MEDS: GI COCKTAIL (VISC LIDO/ANTACID) 30 ML PO (21:54)
[2025-04-05 21:57] LABS: Albumin* 4.9 g/dL (3.3-5.0); Chloride* 105 mmol/L (96-114); Potassium* 3.7 mmol/L (3.6-5.1); Sodium* 138 mmol/L (135-149)
[2025-04-05 22:00] LABS: Alanine Aminotransferase* 22 U/L (4-50); Alkaline Phosphatase* 75 U/L (40-150); Anion Gap 10 mEq/L (7-15); Aspartate Amino Transferase* 25 U/L (12-35); Bilirubin Direct* 0.4 mg/dL (0.0-0.5); Bilirubin Total* 1.5 mg/dL (0.1-1.5); Blood Urea Nitrogen* 16 mg/dL (5-24); Carbon Dioxide* 23 mmol/L (20-32); Creatinine* 1.0 mg/dL (0.5-1.5); Est. Creatinine Clearance* 108.01; Estimated Glomerular Filt Rate 104 ml/min; Total Protein* 7.8 g/dL (6.0-8.3)
[2025-04-05 22:01] LABS: Calcium* 9.2 mg/dL (8.4-10.6); Glucose* 101 mg/dL (60-115)
[2025-04-05 22:03] LABS: D Dimer Quantitative* < 0.27 ug/ml (0.00-0.50)
[2025-04-05 22:13] LABS: NT Pro B Type NatriureticPept* < 20 pg/mL (See Note)
[2025-04-05 22:32] VITALS: RESP 12; O2SAT 99
--- NOTE | 2025-04-05 22:32 | CRLHL7_ITS ---
For Patients: As a result of the Century Cures Act, medical imaging exams and procedure reports are released immediately into your electronic medical record. You may view this report before your referring provider. If you have questions, please contact your health care provider. INDICATION: Chest pain. TECHNIQUE: Chest 1 views. COMPARISON: None. FINDINGS: Cardiovascular and mediastinum: Heart size and vasculature are normal in caliber and appearance. Lungs and pleural spaces: Lungs are clear. No sign of infiltrate or mass. No sign of pleural effusion. No pneumothorax. Bones and soft tissues: No significant findings. IMPRESSION: No acute or significant findings. Dictated by Sathish David MD @ 04/05/2025 10:44:22 PM (Electronically Signed)
[2025-04-05 22:33] VITALS: RESP 10; O2SAT 99
[2025-04-05 22:45] VITALS: PULSE 66; RESP 17; O2SAT 98
== END 2025-04-06 00:15 | disposition home or self-care (01) ==
PROVIDERS: Emergency Provider Family Medicine; PCP Family Medicine
DX: R00.2 Palpitations (principal); R07.9 Chest pain, unspecified; R10.13 Epigastric pain
CPT/HCPCS: 36415; 71045; 80048; 80076; 83880; 84443; 84484; 85025; 85379; 86140; 93005; 93246; 99284; A9270

== ENCOUNTER 2025-05-06 07:50 | Outpatient (CLI) | payer MEDICAID, SELFPAY ==
--- NOTE | 2025-05-06 08:00 | CRLHL7_ITS ---
For Patients: As a result of the Century Cures Act, medical imaging exams and procedure reports are released immediately into your electronic medical record. You may view this report before your referring provider. If you have questions, please contact your health care provider. INDICATION: Acute pharyngitis, unspecified. Sore throat, dark spot on tonsil. Rule out tonsil mass COMPARISON: none TECHNIQUE: A CT volumetric acquisition was performed of the neck during intravenous infusion of 89ML ISOVUE 370 nonionic intravenous contrast. Please note that all CT scans at this facility use dose modulation, iterative reconstruction, and/or weight-based dosing when appropriate to reduce radiation dose to as low as reasonably achievable. FINDINGS: The CT images demonstrate normal aeration of the mastoid air cells and middle ear cavities. The paranasal sinuses are clear. The nasopharynx appears normal. The parotid and submandibular glands are of normal size and have uniform enhancement. There is mild fullness of the left palatine tonsil with associated 3 millimeter calcification. No abscess. Mild fullness at the left posterior tongue base with associated punctate calcification. The valleculae, epiglottis, aryepiglottic folds and piriform sinuses appear normal. There is a normal appearance of the larynx and subglottic trachea. The thyroid gland is of normal size and has uniform density. There is no evidence of lymphadenopathy within the anterior and posterior cervical triangles or within the supraclavicular region. Incidental 3 millimeter calcified granuloma in the right upper lobe. No upper mediastinal adenopathy. Visualized brain parenchyma is normal. IMPRESSION: There is mild nonspecific fullness of the left palatine tonsil and at the left tongue base without abscess or adenopathy. Remainder unremarkable. Please note that all CT scans at this facility use dose modulation, iterative reconstruction, and/or weight-based dosing when appropriate to reduce radiation dose to as low as reasonably achievable. Dictated by Braydon Sweeney MD @ 05/06/2025 9:15:57 AM (Electronically Signed)
== END 2025-05-06 07:51 | disposition home or self-care (01) ==
LOC: CT 07:50
PROVIDERS: PCP Family Medicine; Visit Provider Otolaryngology
DX: J02.9 Acute pharyngitis, unspecified (principal); J35.01 Chronic tonsillitis; J39.2 Other diseases of pharynx; R91.8 Other nonspecific abnormal finding of lung field
CPT/HCPCS: 70491; Q9967